=== PATIENT | male | born 1960 | race Caucasian/White ===

== ENCOUNTER 2019-05-12 15:06 | Emergency (ER) | payer SELFPAY ==
[~2019-05-12] VITALS: Ht 175.3 cm; Wt 79.4 kg
[2019-05-12 15:16] VITALS: BP 155/84
--- NOTE | 2019-05-12 15:35 | NUR ---
58 YEAR OLD MALE bib ra, was found on street altered with bottle of vodka. PATIENT ALSEEP BUT BREATHING EVEN AND UNLABORED. SKIN INTACT. WILL CONTINUE TO MONITOR
== END 2019-05-12 20:43 | disposition home or self-care (01) ==
LOC: ER 15:10
DX: F10.129 Alcohol abuse with intoxication, unspecified (principal); Y90.9 Presence of alcohol in blood, level not specified